=== PATIENT | male | born 1965 | race Caucasian/White ===

== ENCOUNTER 2017-01-19 20:47 | Emergency (ER) | payer OTHER ==
[~2017-01-19] VITALS: Ht 172.7 cm; Wt 75.0 kg
[2017-01-19 20:51] VITALS: Ht 172.7 cm; Wt 75.0 kg
[2017-01-19] MEDS ORDERED: MoRPHine SULFATE 4 MG/ML 1 ML CARP\\VIAL IV STA ×2 (21:02→23:04)
[2017-01-19 21:08] LABS: HEMATOCRIT 43.8 % (42-52); MEAN CELL VOLUME 94.2 fL (80-100); MEAN CORPUSCULAR HEMOGLOBIN 32.7 pg (25-34); MEAN CORPUSCULAR HGB CONC 34.7 g/dl (32-36); MEAN PLATELET VOLUME 8.6 fL (7.4-10.4); PLATELET COUNT 226 K/uL (130-400); RED BLOOD COUNT 4.65 M/uL (4.7-6.1); WHITE BLOOD COUNT 16.92 K/uL (4.8-10.8)
[2017-01-19 21:15] VITALS: O2SAT 99
[2017-01-19 21:22] LABS: PARTIAL THROMBOPLASTIN RATIO 0.8; PROTHROMBIN TIME (PATIENT) 10.5 SECONDS (9.0-12.0)
[2017-01-19 21:24] LABS: ALT/SGPT 22 U/L (12-78); BLOOD UREA NITROGEN 15 mg/dl (7-18); BUN/CREATININE RATIO 9.5 (10-20); CALCIUM 8.7 mg/dl (8.5-10.1); CARBON DIOXIDE 27 mmol/L (21-32); CHLORIDE 101 mmol/L (98-107); GLUCOSE 144 mg/dl (70-99); POTASSIUM 4.2 mmol/L (3.5-5.1); SODIUM 139 mmol/L (136-145)
--- NOTE | 2017-01-19 21:27 | DIAGNOSTIC IMAGING REPORT ---
CHEST ONE VIEW PORTABLE CLINICAL HISTORY: Fever and sepsis COMPARISON STUDY: No previous studies for comparison. FINDINGS: The heart is normal in size. There is no overt failure. There is mild basilar interstitial thickening. There are no pleural effusions. There is no lobar consolidation.[ IMPRESSION: Mild basilar interstitial thickening. No evidence of lobar consolidation Electronically signed by: Kenyon Melgoza M.D. 01/19/2017 9:26 PM Dictated Date/Time: 01/19/2017 9:25 PM
[2017-01-19 21:34] LABS: ALKALINE PHOSPHATASE 71 U/L (45-117); AST/SGOT 15 U/L (15-37); BASO % 0.1 %; BASO ABS # 0.02 K/uL (0-0.2); CKMB/CK RATIO 1.2 (0-3.0); COMPLETE YES; EOS % 0.1 %; IG% 0.4 %; LYMPH % 30.7 %; MONO % 7.9 %; NEUT % 60.8 %
[2017-01-19] MEDS ORDERED: SODIUM CHLORIDE 0.9% 1000ML 1,000 ML IV STA (21:35)
[2017-01-19] MEDS ORDERED: OPTIRAY 320 IV PRN (21:45)
[2017-01-19] MEDS ORDERED: DICL-201 PO (21:49)
[2017-01-19] MEDS ORDERED: PRED10TA PO (21:49)
--- NOTE | 2017-01-19 22:53 | DIAGNOSTIC IMAGING REPORT ---
CT ANGIOGRAM OF THE CHEST CLINICAL HISTORY: Chest pain and shortness of breath COMPARISON STUDY: Chest x-ray dated 01/19/2017 TECHNIQUE: Following the IV administration of 92 mL of Optiray-320, CT angiogram of the thorax was performed from the thoracic inlet to the lung bases utilizing the pulmonary embolus protocol. Images are reviewed in the axial, sagittal, and coronal planes. IV contrast was administered without complication. MIP imaging was performed. CT DOSE: 298.16 mGy.cm FINDINGS: No pathologically enlarged axillary mediastinal or hilar lymph nodes were visualized. There was no evidence of thoracic aortic dilatation. An intraluminal hypodensity within the ascending thoracic aorta is likely artifactual. There were no pulmonary artery filling defects to indicate acute pulmonary embolism. No pleural effusions are visualized. There are by basilar atelectatic changes. There is no focal pulmonary consolidation. IMPRESSION: 1. No evidence of acute pulmonary embolism 2. No evidence of focal pulmonary consolidation 3. Unusual appearing hypodensity within the ascending thoracic aorta. This is of uncertain etiology and possibly artifactual. This does not have the typical appearance of a dissection. If there is clinical concern over the presence of ascending thoracic aortic pathology, a cardiac echo study could be obtained in follow-up for correlation. Electronically signed by: Kenyon Melgoza M.D. 01/19/2017 10:52 PM Dictated Date/Time: 01/19/2017 10:42 PM
[2017-01-19] MEDS ORDERED: ONDANSETRON INJ 2 MG/ML 2 ML VIAL IV STA (23:14)
[2017-01-19] MEDS ORDERED: METOPROLOL TARTRATE 1 MG/ML VIAL IV STA (23:27)
--- NOTE | 2017-01-20 00:09 | EMERGENCY ROOM VISIT NOTE ---
History Report prepared by Salomón: Kapil Hodgson Under the Supervision of: Dr. Tyler Moore D.O. First contact with patient: 20:54 Chief Complaint: CHEST PAIN Stated Complaint: CHEST PAIN History of Present Illness The patient is a 51 year old male who presents to the Emergency Room via ambulance with complaints of worsening upper chest pain starting prior to arrival. The patient currently rates his discomfort as an 8/10 in severity. The patient states that the pain is radiating into his back, and it feels like pressure. The patient additionally states that he was vomiting, sweaty, he was burping, and his left fingers are numb. He states that breathing exacerbates the pain. The patient states that he has a history of intermittent heart murmurs. He states that he smokes marijuana. Source of History: patient Onset: prior to arrival Position: chest Symptom Intensity: 8/10 Quality: pressure Timing: worsening Modifying Factors (Worsening): breathing Associated Symptoms: + vomiting Note: Associated symptoms: sweating and burping Review of Systems See HPI for pertinent positives & negatives. A total of 10 systems reviewed and were otherwise negative. Past Medical & Surgical Medical Problems: (1) No Known Active Medical Problems Family History Cancer Diabetes mellitus Hypertension Social History Smoking Status: Former Smoker Alcohol Use: none Drug Use: none Marital Status: single Housing Status: lives with family Occupation Status: employed Current/Historical Medications Scheduled Diclofenac (Voltaren), 75 MG PO BID Prednisone (Prednisone), 10 MG PO TAPER UD Allergies Coded Allergies: No Known Allergies (Unverified , 06/23/12) Physical Exam Vital Signs Date Time Temp Pulse Resp B/P Pulse Ox O2 Delivery O2 Flow Rate FiO2 01/20/17 00:12 59 15 01/20/17 00:07 44 20 01/20/17 00:02 46 01/20/17 00:02 46 15 01/20/17 00:00 151/101 01/19/17 23:57 44 18 01/19/17 23:53 153/108 01/19/17 23:52 56 20 01/19/17 23:47 50 23 01/19/17 23:42 48 17 01/19/17 23:37 60 14 01/19/17 23:32 53 20 01/19/17 23:30 151/96 01/19/17 23:30 52 159/101 01/19/17 23:27 51 20 01/19/17 23:22 52 18 01/19/17 23:17 58 19 01/19/17 23:12 92 27 01/19/17 23:11 149/105 01/19/17 23:07 63 29 01/19/17 23:02 66 25 01/19/17 22:57 71 25 01/19/17 22:52 70 26 01/19/17 22:47 71 28 98 01/19/17 22:45 62 21 159/101 97 Room Air 01/19/17 22:44 159/101 01/19/17 22:12 46 21 95 01/19/17 22:07 45 21 95 01/19/17 22:02 46 17 96 01/19/17 22:00 153/92 01/19/17 21:57 44 20 95 01/19/17 21:52 43 15 95 01/19/17 21:47 50 20 98 01/19/17 21:42 45 19 94 01/19/17 21:37 44 13 95 01/19/17 21:32 52 19 98 01/19/17 21:30 138/87 01/19/17 21:27 47 25 96 01/19/17 21:22 51 20 95 01/19/17 21:17 50 21 93 01/19/17 21:15 99 Room Air 01/19/17 21:14 73 01/19/17 21:12 64 30 149/89 99 Room Air 01/19/17 21:07 53 33 100 01/19/17 21:02 54 25 99 01/19/17 21:00 134/90 01/19/17 20:57 136/85 01/19/17 20:54 99 Room Air 01/19/17 20:53 98 Room Air 01/19/17 20:51 36.5 50 20 135/85 98 Room Air Physical Exam CONSTITUTIONAL/VITAL SIGNS: Reviewed / noted above. GENERAL: Non-toxic in appearance. INTEGUMENTARY: Warm, dry, and Schlusser. HEAD: Normocephalic. EYES: without scleral icterus or trauma. ENT/OROPHARYNX: clear and moist. LYMPHADENOPATHY/NECK: Is supple without lymphadenopathy or meningismus. RESPIRATORY: Lungs clear and equal. CARDIOVASCULAR: Regular rate and rhythm. GI/ABDOMEN: Soft and nontender. No organomegaly or pulsatile mass. No rebound or guarding. Normal bowel sounds. EXTREMITIES: Warm and well perfused. BACK: No CVA tenderness. NEUROLOGICAL: Intact without focal deficits. PSYCHIATRIC: normal affect. MUSCULOSKELETAL: Normally developed with good muscle tone. Medical Decision & Procedures ER Provider Diagnostic Interpretation: Radiology results as stated below per my review and radiologist interpretation: CHEST ONE VIEW PORTABLE CLINICAL HISTORY: Fever and sepsis COMPARISON STUDY: No previous studies for comparison. FINDINGS: The heart is normal in size. There is no overt failure. There is mild basilar interstitial thickening. There are no pleural effusions. There is no lobar consolidation.[ IMPRESSION: Mild basilar interstitial thickening. No evidence of lobar consolidation Electronically signed by: Kenyon Melgoza M.D. 01/19/2017 9:26 PM Dictated Date/Time: 01/19/2017 9:[address] ANGIOGRAM OF THE CHEST CLINICAL HISTORY: Chest pain and shortness of breath COMPARISON STUDY: Chest x-ray dated 01/19/2017 TECHNIQUE: Following the IV administration of 92 mL of Optiray-320, CT angiogram of the thorax was performed from the thoracic inlet to the lung bases utilizing the pulmonary embolus protocol. Images are reviewed in the axial, sagittal, and coronal planes. IV contrast was administered without complication. MIP imaging was performed. CT DOSE: 298.16 mGy.cm FINDINGS: No pathologically enlarged axillary mediastinal or hilar lymph nodes were visualized. There was no evidence of thoracic aortic dilatation. An intraluminal hypodensity within the ascending thoracic aorta is likely artifactual. There were no pulmonary artery filling defects to indicate acute pulmonary embolism. No pleural effusions are visualized. There are by basilar atelectatic changes. There is no focal pulmonary consolidation. IMPRESSION: 1. No evidence of acute pulmonary embolism 2. No evidence of focal pulmonary consolidation 3. Unusual appearing hypodensity within the ascending thoracic aorta. This is of uncertain etiology and possibly artifactual. This does not have the typical appearance of a dissection. If there is clinical concern over the presence of ascending thoracic aortic pathology, a cardiac echo study could be obtained in follow-up for correlation. Electronically signed by: Kenoyn Melgoza M.D. 01/19/2017 10:52 PM Dictated Date/Time: 01/19/2017 10:42 PM Laboratory Results 01/19/17 20:55 Red Blood Count 4.65, Mean Corpuscular Volume 94.2, Mean Corpuscular Hemoglobin 32.7, Mean Corpuscular Hemoglobin Concent 34.7, Mean Platelet Volume 8.6, Neutrophils (%) (Auto) 60.8, Lymphocytes (%) (Auto) 30.7, Monocytes (%) (Auto) 7.9, Eosinophils (%) (Auto) 0.1, Basophils (%) (Auto) 0.1, Neutrophils # (Auto) 10.28, Lymphocytes # (Auto) 5.20, Monocytes # (Auto) 1.34, Eosinophils # (Auto) 0.01, Basophils # (Auto) 0.02 01/19/17 20:55 Test 01/19/17 20:55 01/19/17 21:00 01/19/17 23:56 White Blood Count 16.92 K/uL (4.8-10.8) Red Blood Count 4.65 M/uL (4.7-6.1) Hemoglobin 15.2 g/dL (14.0-18.0) Hematocrit 43.8 % (42-52) Mean Corpuscular Volume 94.2 fL (80-100) Mean Corpuscular Hemoglobin 32.7 pg (25-34) Mean Corpuscular Hemoglobin Concent 34.7 g/dl (32-36) Platelet Count 226 K/uL (130-400) Mean Platelet Volume 8.6 fL (7.4-10.4) Neutrophils (%) (Auto) 60.8 % Lymphocytes (%) (Auto) 30.7 % Monocytes (%) (Auto) 7.9 % Eosinophils (%) (Auto) 0.1 % Basophils (%) (Auto) 0.1 % Neutrophils # (Auto) 10.28 K/uL (1.4-6.5) Lymphocytes # (Auto) 5.20 K/uL (1.2-3.4) Monocytes # (Auto) 1.34 K/uL (0.11-0.59) Eosinophils # (Auto) 0.01 K/uL (0-0.5) Basophils # (Auto) 0.02 K/uL (0-0.2) RDW Standard Deviation 45.7 fL (36.4-46.3) RDW Coefficient of Variation 13.2 % (11.5-14.5) Immature Granulocyte % (Auto) 0.4 % Immature Granulocyte # (Auto) 0.07 K/uL (0.00-0.02) Prothrombin Time 10.5 SECONDS (9.0-12.0) Prothromb Time International Ratio 1.0 (0.9-1.1) Activated Partial Thromboplast Time 20.0 SECONDS (21.0-31.0) Partial Thromboplastin Ratio 0.8 Anion Gap 11.0 mmol/L (3-11) Est Creatinine Clear Calc Drug Dose 51.6 ml/min Estimated GFR () 56.2 Estimated GFR (Non- 48.5 BUN/Creatinine Ratio 9.5 (10-20) Calcium Level 8.7 mg/dl (8.5-10.1) Total Bilirubin 0.4 mg/dl (0.2-1) Direct Bilirubin 0.1 mg/dl (0-0.2) Aspartate Amino Transf (AST/SGOT) 15 U/L (15-37) Alanine Aminotransferase (ALT/SGPT) 22 U/L (12-78) Alkaline Phosphatase 71 U/L (45-117) Total Creatine Kinase 82 U/L (39-308) Creatine Kinase MB 1.0 ng/ml (0.5-3.6) Creatine Kinase MB Ratio 1.2 (0-3.0) Troponin I < 0.015 ng/ml (0-0.045) Total Protein 6.9 gm/dl (6.4-8.2) Albumin 3.9 gm/dl (3.4-5.0) Lipase 127 U/L (73-393) Thyroid Stimulating Hormone (TSH) 1.830 uIu/ml (0.300-4.500) Bedside D-Dimer > 450 ng/mlFEU (0-450) Bedside Troponin I 1.000 ng/ml (0-0.045) Laboratory results as stated above per my review. Medications Administered Medications (Trade) Dose Ordered Sig/Noe Route Start Time Stop Time Status Last Admin Dose Admin Morphine Sulfate 4 mg 4 mg NOW STAT IV 01/19/17 21:02 01/19/17 21:04 DC 01/19/17 21:14 4 MG Sodium Chloride (Nss 1000ml) 1,000 ml @ 999 mls/hr Q1H1M STAT IV 01/19/17 21:35 01/19/17 22:35 DC 01/19/17 22:02 999 MLS/HR Morphine Sulfate (MoRPHine SULFATE INJ) 4 mg NOW STAT IV 01/19/17 23:04 01/19/17 23:05 DC 01/19/17 23:05 4 MG Ondansetron HCl (Zofran Inj) 4 mg NOW STAT IV 01/19/17 23:14 01/19/17 23:15 DC 01/19/17 23:15 4 MG Metoprolol Tartrate (Lopressor Iv) 5 mg NOW STAT IV 01/19/17 23:27 01/19/17 23:28 DC 01/19/17 23:30 5 MG ECG Indication: chest pain Rate (beats per minute): 46 Rhythm: sinus bradycardia Findings: no ectopy, other (No acute injury) Change: REPEAT EKG: Normal sinus rhythm, 80 bpm, no acute injury, no ectopy ED Course 2053: Previous medical records were reviewed. The patient was evaluated in room C4. A complete history and physical examination was performed. 2101: Morphine Sulfate Inj 4mg IV 2134: Sodium Chloride 1000 ml @ 999 mls/hr IV 2303: Morphine Sulfate Inj 4mg IV 2304: I reevaluated the patient, and he was still in severe pain and vomiting. 230: I discussed the patient's case with Dr. Waller, Cardiology, and he states that the patient should be evaluated further due to the possibility of a dissection. 2314: Zofran Inj 4mg IV 2327: Lopressor IV 5mg IV 2342: I discussed the patient's case with Dr. Lainez, Thoracic Surgery, [facility]. She is going to evaluate the patient for further treatment. Medical Decision the differential was considered includes acute myocardial infarction, acute coronary syndrome, myocarditis, pericarditis, pericardial effusions /tamponad, esophageal perforation, thoracic aortic dissection, pulmonary embolism, pneumonia, pneumothorax, pancreatitis, shingles, acute cholecystitis, perforated abdominal viscus. This is a 51-year-old male who presents to the ED with a chief complaint of upper chest pain that radiates into his back. The patient states that the symptoms started about 3045 minutes prior to his arrival. He describes it as pressure. He has some associated nausea and vomiting. He also reported some sweating and burping. His symptoms continue on his evaluation. His vital signs are normal. His physical exam was relatively unremarkable with exception of the patient appeared to have some pain. Twelve-lead EKG reveals normal sinus rhythm without ectopy or acute injury. His white blood cell count was 16.9. His d-dimer was elevated. Creatinine was 1.6. Troponin was negative. Troponin #2 was elevated and increased by [address] scan of the chest did not show PE. There was a concerning abnormality in the ascending thoracic aorta. Radiologist recommended follow-up ultrasound for further evaluation if aortic dissection was of concern. I spoke with our friend of the court and he recommends a YAN. This cannot be performed at this time here. He recommends transfer to a hospital that has capabilities of performing thoracic surgery. I talked to the patient about this. He agrees to transfer to [facility]. The patient is treated with morphine IV for his pain. His blood pressure remains stable. The patient was given IV Morphine for pain which helps some. He was ordered Lopressor 5 mg IV. He did have an episode of vomiting here and was given Zofran 4 mg IV. He was also given normal saline 1 L IV as his creatinine was 1.6 and he received IV contrast. The patient continues having fairly persistent pain that worsens at times but improved somewhat with morphine. A total of 3 EKGs formed and none showed ischemic changes. The patient remained stable during his ED stay. He is transferred by helicopter for emergent cardiology/cardiothoracic evaluation. Consults Time Called: 230 Consulting Physician: Dr. Waller, Cardiology Returned Call: [phone] I discussed the patient's case with Dr. Waller, Cardiology, and he states that the patient should be evaluated further due to the possibility of a dissection. Additional Consults: Time Called: [phone] Consulted Physician: Dr. Lainez, Thoracic Surgery, [facility] Returned Call: [phone] Additional Comments: I discussed the patient's case with Dr. Lainez, Thoracic Surgery, [facility]. She is going to evaluate the patient for further treatment. Impression Primary Impression: Aortic dissection Additional Impression: Elevated troponin Critical Care I have personally spent greater than 35 minutes of critical care time in the direct management of this patient. This includes bedside care, interpretation of diagnostic studies, and testing, discussion with consultants, patient, and family members, and other required patient management activities. This 35 minutes is in excess of all separately billable procedures. Scribe Attestation The scribe's documentation has been prepared under my direction and personally reviewed by me in its entirety. I confirm that the note above accurately reflects all work, treatment, procedures, and medical decision making performed by me. Departure Information Dispostion Transfer Acute Care Facility Referrals No Doctor, Assigned (PCP) Patient Instructions My [facility] Problem Qualifiers
[2017-01-20 01:01] VITALS: BP 148/95; PULSE 59; TEMP 36.5; O2SAT 98
== END 2017-01-20 01:03 | disposition short-term general hospital (02) ==
LOC: EDBD 20:47 → C.EDC 20:48
DX: I71.00 Dissection of unspecified site of aorta (principal); R79.89 Other specified abnormal findings of blood chemistry; Z87.891 Personal history of nicotine dependence; Z83.3 Family history of diabetes mellitus; Z82.49 Family history of ischemic heart disease and other diseases of the circulatory system; Z79.52 Long term (current) use of systemic steroids

== ENCOUNTER 2025-01-04 10:42 | Inpatient (IN) ==
[2025-01-04 11:45] LABS: Basophils # (auto) 0.06 K/uL (0.00-0.20); Basophils % (auto) 0.7 %; Eosinophils # (auto) 0.08 K/uL (0.00-0.50); Eosinophils % (auto) 0.9 %; Hematocrit (blood only) 46.1 % (42.0-52.0); Hemoglobin 15.6 g/dl (14.0-18.0); Immature Granulocytes # (auto) 0.04 K/uL (0.01-0.20); Immature Granulocytes % (auto) 0.5 %; Lymphocytes # (auto) 1.62 K/uL (1.20-3.40); Mean Corpuscular Hemoglobin 32.2 pg (25.0-34.0); Mean Corpuscular Hgb Conc 33.8 g/dL (32.0-36.0); Mean Corpuscular Volume 95.1 fL (80.0-100.0); Mean Platelet Volume 8.4 fL (9.4-12.4); Monocytes # (auto) 0.56 K/uL (0.11-0.59); Monocytes % (auto) 6.6 %; Neutrophils # (auto) 6.17 K/uL (1.40-6.50); Neutrophils % (auto) 72.3 %; Platelet Count 203 K/uL (130-400); RDW Coefficient of Variation 12.9 % (11.5-14.5); RDW Standard Deviation 45.5 fL (36.4-46.3); Red Blood Count 4.85 M/uL (4.70-6.10); White Blood Count 8.53 K/ul (4.8-10.8)
[2025-01-04 11:47] LABS: Albumin Globulin Ratio 1.8 (0.9-2); Albumin Level 4.4 gm/dl (3.4-5.0); BUN Creatinine Ratio 14.6 (10-20); Bilirubin,Total 0.5 mg/dl (0.2-1.0); Calcium 9.4 mg/dl (8.6-10.3); Creatinine Clr Calc Pharmacy 54.8 ml/min; Globulin 2.4 gm/dl (2.5-4.0); Potassium 4.6 mmol/L (3.5-5.1); Total Protein 6.8 gm/dl (6.0-8.3)
[2025-01-04 11:53] LABS: Troponin I High Sensitivity 14.9 pg/ml (0-20)
[2025-01-04 11:57] LABS: INR 0.9 (0.9-1.1); Partial Thromboplastin Ratio 0.9; Partial Thromboplastin Time 23 Seconds (21-31); Prothrombin Time 10.3 Seconds (9.0-12.0)
[2025-01-04] MEDS: fentaNYL citrate PF 100 MCG/2 ML VIAL IV STA (12:18)
--- NOTE | 2025-01-04 12:20 | Emergency Department Note ---
Impression & Plan Chest pain, Non-ST elevation (NSTEMI) myocardial infarction ED Provider Note HISTORY OF PRESENT ILLNESS: Patient is a 59-year-old male presenting with chest pain, back pain and neck pain. Patient reports that earlier this morning at 815 after getting off the phone with a medicare contact specialist, he developed substernal chest pain that radiated into his back and up his neck. He states that most of his pain seems to be located on the left side of his chest and into his left shoulder and left neck. He states that his bilateral upper arms hurt down to the elbows. He denies ever having pain like this before. Denies any DVT or PE history. He is not on any anticoagulation or antiplatelet therapy. He states the pain has been constant since onset. He denies any history of cardiac stents. He denies any headache or changes in vision. Denies any lightheadedness or dizziness. Denies any abdominal pain, nausea or vomiting. Patient reports that he [facility] and it was recommended that he get a stent in his heart, but he states that he did not want to have that procedure performed at that time. ROS: as above PHYSICAL EXAM: Constitutional: Patient appears in no acute distress. HENT: Head: Normocephalic and atraumatic. Eyes: EOMI, PERRL Mouth/Throat: Mucous membranes moist. Neck: Trachea midline. Neck supple. Cardiovascular: RRR, No murmurs, rubs or gallops. Intact distal pulses. Pulmonary/Chest: No respiratory distress. Breath sounds clear and equal bilaterally. No wheezes or rales. Abdominal: Abdomen soft, no tenderness, rebound or guarding. Musculoskeletal: No edema, tenderness or deformity noted. Skin: Warm and dry. No rash, erythema, pallor or cyanosis Psychiatric: Appropriate mood and affect for situation. Neurological: Alert and keenly responsive. CN II-XII grossly intact, moving all extremities equally and fully. MDM: - Vitals signs showed hypertension and bradycardia - History obtained via patient. History as above. - Chronic conditions affecting care: HTN; HLD; NSTEMI - Differential diagnoses include, but are not limited to: Acute coronary syndrome; pulmonary embolism; dissection; tension pneumothorax; esophageal rupture; pneumonia - Order placed for continuous cardiac monitoring. At this time, monitor showed rate of 54 bpm with normal sinus rhythm, per my interpretation. - External medical records reviewed. - EKG image interpreted by myself showed normal sinus rhythm. Rate bradycardic at 58 bpm. QT 402. No acute ischemic changes. - Laboratory workup interpreted by myself showed normal WBC; normal PT/INR; slight hyponatremia (Na 134); normal troponin - CXR image reviewed by myself is negative for pneumonia, per my interpretation. - Patient given 50 mcg IV fentanyl for pain control on arrival to ER. - CTA chest negative for acute abnormality. - Repeat troponin elevated at 248.3. Repeat EKG image obtained at 15:48 interpreted by myself showed normal sinus rhythm. Rate 62 bpm. QT 410. No acute ischemic changes. - Patient reports he is pain-free on reassessment in the emergency department. - HEART score 4 (History +1 moderately suspicious; EKG +0; Age +1; Risk factors +2; Initial troponin +0), amounting to a moderate score. - Patient given 324 mg PO aspirin - Discussion was had with pillowcase cutter about patient's case and need for admission - Hospitalist consulted for admission - [facility]. I have personally spent 61 minutes of critical care time in the direct management of this patient. This includes bedside care, interpretation of diagnostic studies, and testing, discussion with consultants, patient, and family members, and other required patient management activities. This 61 minutes is in excess of all separately billable procedures. 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 treated with warfarin-discontinued Hx of non-ST elevation myocardial infarction (NSTEMI) 01/2017, complicated by apical mural thrombus Dyslipidemia Social History Smoking Status: Former smoker Feels Safe at Home: Yes Allergies Allergies Allergy/AdvReac Type Severity Reaction Status Date / Time No Known Allergies Allergy Unverified 06/23/12 08:48 Home Meds Home Medications Medication Instructions Recorded Confirmed No Known Home Medications 01/04/25 01/04/25 Results & Data (ED) Vital Signs Vital Signs - 24 hr 01/04/25 10:58 01/04/25 11:47 01/04/25 11:47 Temperature 36.7 C Temperature Source Temporal Artery Scan Pulse Rate 56 L Pulse Rate [Apical] Pulse Rhythm Regular Pulse Strength Normal Respiratory Rate 18 Respiratory Effort / Characteristics Non-Labored Spontaneous Respiratory Depth Normal Respiratory Pattern Blood Pressure 143/90 H Blood Pressure [Right Arm] Blood Pressure Mean 107 Blood Pressure Mean [Right Arm] Blood Pressure Position Sitting Blood Pressure Position [Right Arm] Pulse Oximetry 99 100 Oxygen Delivery Method Room Air Room Air Oxygen Flow Rate 100 Sepsis Recent Fever Within 48 Hours No Sepsis New/Unexplained Change in Mental Status N/A Sepsis Action Taken by Nursing No Action Required 01/04/25 12:01 01/04/25 12:39 01/04/25 13:00 Temperature Temperature Source Pulse Rate 51 L 54 L Pulse Rate [Apical] 72 Pulse Rhythm Pulse Strength Respiratory Rate 16 15 Respiratory Effort / Characteristics Non-Labored Spontaneous Respiratory Depth Normal Respiratory Pattern Regular Blood Pressure 139/95 Blood Pressure [Right Arm] 145/95 H Blood Pressure Mean 115 Blood Pressure Mean [Right Arm] 111 Blood Pressure Position Blood Pressure Position [Right Arm] Pulse Oximetry 98 95 Oxygen Delivery Method Room Air Oxygen Flow Rate Sepsis Recent Fever Within 48 Hours Sepsis New/Unexplained Change in Mental Status Sepsis Action Taken by Nursing 01/04/25 15:25 Temperature Temperature Source Pulse Rate Pulse Rate [Apical] 60 Pulse Rhythm Pulse Strength Respiratory Rate 17 Respiratory Effort / Characteristics Non-Labored Spontaneous Respiratory Depth Normal Respiratory Pattern Regular Blood Pressure Blood Pressure [Right Arm] 152/92 H Blood Pressure Mean Blood Pressure Mean [Right Arm] 112 Blood Pressure Position Blood Pressure Position [Right Arm] Semi-fowlers Pulse Oximetry 96 Oxygen Delivery Method Room Air Oxygen Flow Rate Sepsis Recent Fever Within 48 Hours Sepsis New/Unexplained Change in Mental Status Sepsis Action Taken by Nursing Laboratory Data 01/04/25 11:12 01/04/25 11:12 Lab Results 01/04/25 01/04/25 Range/Units 11:12 14:53 WBC 8.53 (4.8-10.8) K/ul RBC 4.85 (4.70-6.10) M/uL Hgb 15.6 (14.0-18.0) g/dl Hct 46.1 (42.0-52.0) % MCV 95.1 (80.0-100.0) fL MCH 32.2 (25.0-34.0) pg MCHC 33.8 (32.0-36.0) g/dL RDW Std Deviation 45.5 (36.4-46.3) fL RDW Coeff of Radu 12.9 (11.5-14.5) % Plt Count 203 (130-400) K/uL MPV 8.4 L (9.4-12.4) fL Immature Gran % (Auto) 0.5 % Neut % (Auto) 72.3 % Lymph % (Auto) 19.0 % [place] % (Auto) 6.6 % Eos % (Auto) 0.9 % Baso % (Auto) 0.7 % Neut # (Auto) 6.17 (1.40-6.50) K/uL Lymph # (Auto) 1.62 (1.20-3.40) K/uL [place] # (Auto) 0.56 (0.11-0.59) K/uL Eos # (Auto) 0.08 (0.00-0.50) K/uL Baso # (Auto) 0.06 (0.00-0.20) K/uL Immature Gran # (Auto) 0.04 (0.01-0.20) K/uL PT 10.3 (9.0-12.0) Seconds INR 0.9 (0.9-1.1) APTT 23 (21-31) Seconds PTT Ratio 0.9 Sodium 134 L (136-145) mmol/L Potassium 4.6 (3.5-5.1) mmol/L Chloride 101 (98-107) mmol/L Carbon Dioxide 28 (21-32) mmol/L Anion Gap 5 (3-11) BUN 20 (6-23) mg/dl Creatinine 1.37 (0.6-1.4) mg/dl Est Cr Clr Drug Dosing 54.8 ml/min eGFR 58.69 BUN/Creatinine Ratio 14.6 (10-20) Glucose 142 H (70-99(Fasting)) mg/dl Calcium 9.4 (8.6-10.3) mg/dl Total Bilirubin 0.5 (0.2-1.0) mg/dl AST 16 (13-39) U/L ALT 14 (7-52) U/L Alkaline Phosphatase 70 (34-104) U/L Troponin I High Sens 14.9 248.3 H* D (0-20) pg/ml Total Protein 6.8 (6.0-8.3) gm/dl Albumin 4.4 (3.4-5.0) gm/dl Globulin 2.4 L (2.5-4.0) gm/dl Albumin/Globulin Ratio 1.8 (0.9-2) Administered Medications Discontinued Medications Aspirin (Aspirin Chew 324 Mg) 324 mg PO NOW STA Stop: 01/04/25 15:41 Last Admin: 01/04/25 15:48 Dose: 324 mg Documented By: SUSI Fentanyl Citrate (Fentanyl Citrate Pf 100 Mcg/2 Ml Vial) 50 mcg IV NOW STA Stop: 01/04/25 12:13 Last Admin: 01/04/25 12:18 Dose: 50 mcg Documented By: COLUMBA Ioversol (Optiray 320 125ml) 112 ml IV ONCE ONE Stop: 01/04/25 13:22 Last Admin: 01/04/25 13:22 Dose: 112 ml Documented By: NAN Imaging Data Radiologist's Impression: Chest X-Ray 01/04/25 11:01 XR chest 1V portable CLINICAL HISTORY: Chest pain, nonspecific COMPARISON STUDY: Chest radiograph and chest CT January 19, 2017. FINDINGS: Lung volumes are normal. Lungs are clear. There is no pneumothorax or pleural effusion. Cardiac size is normal. Mediastinal contours are normal. There is no evidence for pulmonary edema. Several old right-sided rib fractures are incidentally noted. IMPRESSION: No acute cardiopulmonary findings. ACT 112: Negative or not required by law. Electronically signed by: Tunde Nickerson M.D. 01/04/2025 12:45 PM Chest CTA 01/04/25 12:12 CT ANGIOGRAPHY OF THE CHEST DISSECTION PROTOCOL CLINICAL HISTORY: Chest pain radiating into back and neck. Evaluate for aortic dissection. COMPARISON STUDY: Chest radiograph performed earlier today. Chest CT January 19, 2017. TECHNIQUE: Before and following the IV administration of 112 mL of Optiray, helical axial images of the chest were obtained. Maximal intensity projections and sagittal and coronal reformats were viewed on an independent 3D workstation. IV contrast was administered without complication. Automated exposure control was utilized for the study. A dose lowering technique was utilized adhering to the principles of ALARA. CT DOSE: 981.09 mGy.cm FINDINGS: Caliber of the ascending aorta is normal, measuring 3.5 cm. There is no intramural hematoma or thoracic aortic dissection. There is mild coronary artery calcification. Size of the heart is normal. There is no pericardial effusion. No thoracic lymphadenopathy is present. No pulmonary emboli are identified. There is no pneumothorax or pleural effusion. There is no consolidation to suggest pneumonia. There is minimal upper lobe predominant paraseptal emphysema. There are no acute fractures within the bony thorax. Visualized portions of the upper abdomen are unremarkable. There is mild atherosclerotic plaque within the thoracic aorta and moderate atherosclerotic plaque within visualized portions of the abdominal aorta. IMPRESSION: 1. No thoracic aortic dissection. 2. No acute intrathoracic findings. ACT 112: Negative or not required by law. Electronically signed by: Tunde Nickerson M.D. 01/04/2025 1:35 PM Discharge Plan Visit Data Chief Complaint: Chest Pain Stated Complaint: PAINS IN CHEST,ARM, BACK ED Provider: Crystal Carey Discharge Problem: Chest pain, Non-ST elevation (NSTEMI) myocardial infarction Forms Stand Alone Forms: My [facility] nanoMR Prescriptions Prescriptions: No Action No Known Home Medications Referrals Referrals: [facility] [Primary Care Provider] -
--- NOTE | 2025-01-04 12:46 | XRay Report ---
XR chest 1V portable CLINICAL HISTORY: Chest pain, nonspecific COMPARISON STUDY: Chest radiograph and chest CT January 19, 2017. FINDINGS: Lung volumes are normal. Lungs are clear. There is no pneumothorax or pleural effusion. Car diac size is normal. Mediastinal contours are normal. There is no evidence for pulmonary edema. Sever al old right-sided rib fractures are incidentally noted. IMPRESSION: No acute cardiopulmonary findings. ACT 112: Negative or not required by law. Electronically signed by: Tunde Nickerson M.D. 01/04/2025 12:45 PM
[2025-01-04] MEDS: OPTIRAY 320 125ml IV ONE (13:22)
--- NOTE | 2025-01-04 13:37 | CT Scan Report ---
CT ANGIOGRAPHY OF THE CHEST DISSECTION PROTOCOL CLINICAL HISTORY: Chest pain radiating into back and neck. Evaluate for aortic dissection. COMPARISON STUDY: Chest radiograph performed earlier today. Chest CT January 19, 2017. TECHNIQUE: Before and following the IV administration of 112 mL of Optiray, helical axial images of t he chest were obtained. Maximal intensity projections and sagittal and coronal reformats were viewed on an independent 3D workstation. IV contrast was administered without complication. Automated exp osure control was utilized for the study. A dose lowering technique was utilized adhering to the [facility]. CT DOSE: 981.09 mGy.cm FINDINGS: Caliber of the ascending aorta is normal, measuring 3.5 cm. There is no intramural hematom a or thoracic aortic dissection. There is mild coronary artery calcification. Size of the heart is no rmal. There is no pericardial effusion. No thoracic lymphadenopathy is present. No pulmonary emboli a re identified. There is no pneumothorax or pleural effusion. There is no consolidation to suggest pne umonia. There is minimal upper lobe predominant paraseptal emphysema. There are no acute fractures wi thin the bony thorax. Visualized portions of the upper abdomen are unremarkable. There is mild athero sclerotic plaque within the thoracic aorta and moderate atherosclerotic plaque within visualized port ions of the abdominal aorta. IMPRESSION: 1. No thoracic aortic dissection. 2. No acute intrathoracic findings. ACT 112: Negative or not required by law. Electronically signed by: Tunde Nickerson M.D. 01/04/2025 1:35 PM
--- NOTE | 2025-01-04 14:57 | Electrocardiogram Report ---
Test Reason : Blood Pressure : */* mmHG Vent. Rate : 58 BPM Atrial Rate : 58 BPM P-R Int : 168 ms QRS Dur : 90 ms QT Int : 402 ms P-R-T Axes : 81 79 76 degrees QTcB Int : 394 ms Sinus bradycardia with sinus arrhythmia Otherwise normal ECG When compared with ECG of 19-Jan-2017 23:11, No significant change was found Confirmed by Benji Conner ([id number]) on 01/04/2025 2:56:34 PM Referred By: Confirmed By: Benji Conner
--- NOTE | 2025-01-04 15:47 | History & Physical Report ---
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 Pain radiated to the jaw, down both arms and to the chest, did have associated diaphoresis and lightheadedness. 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 Admitted for cardiology evaluation and further workup. #Chest Pain | Elevated troponin | CAD Chest pain in the setting of recently reported abnormal outpatient stress test, and rising troponin EKG without ST segment changes Has not been taking outpatient metoprolol or statin Cardiology consulted - start heparin drip, no intervention today, can eat ASA 81mg qAM Troponin elevated 248, trend every 6 hours to peak prn nitro for pain #Dyslipidemia Reports is supposed to be taking statin outpatient, but hasn't in the last month AM lipids #Prediabetes Reportedly. Glucose 142 on admission AM HgbA1c #Alcohol Abuse Reports 2-3 drinks beers daily with dinner AWSS protocol Check B12 level, empiric thiamine Dispo: admit to PCU Dvt Ppx: heparin drip History of Present Illness Chief Complaint: chest pain Primary Care Provider: [facility] Ho is a 59-year-old male with a past medical history of non-STEMI, splenic infarction, dyslipidemia, hypertension who presents with chest pain. This occured after having an argument at a car dealership. He had chest pain that radiated to the jaw, down both arms and to the chest. Denies shortness of breath, but did have associated diaphoresis and lightheadedness. He had a recent stress test in [place] that recommended he have a stent placed but he declined this as he has been feeling well. Does not take any medications at home, reports that he is post be taking metoprolol and a statin but has not taken them in at least a month because "life has gotten busy" patient states the fentanyl did help his chest pain, does have a heaviness sensation in his chest. He denies history of diabetes but reports he is prediabetic, not on any medication. He does not smoke cigarettes but smokes marijuana "as often as possible" and drinks 2-3 beers with dinner daily ER course: Aspirin 324 mg p.o. 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 in setting of NSTEMI treated with warfarin-discontinued Hx of non-ST elevation myocardial infarction (NSTEMI) 01/2017, complicated by apical mural thrombus Dyslipidemia Social History Smoking Status: Former smoker Feels Safe at Home: Yes Review of Systems Review of Systems: All systems reviewed & are unremarkable except as noted in Subjective Physical Exam Physical Exam: General: NAD, VS as above, sitting up in bed, appears comfortable Resp: normal respiratory effort, coarse in the bases CV: RRR, no murmur, Abd: normal bowel sounds, non tender, soft Extremities: Moves all extremities, no lower extremityedema Neuro: A&O x3, Skin: intact, not diaphoretic Results & Data Results & Data Vital Signs (Past 12 Hours) Vital Signs Temp Pulse Pulse Resp BP BP Pulse Ox 01/04/25 15:25 60 17 152/92 H 96 01/04/25 13:00 54 L 15 139/95 95 01/04/25 12:39 72 16 145/95 H 98 01/04/25 12:01 51 L 01/04/25 11:47 100 01/04/25 11:47 01/04/25 10:58 98.1 F 56 L 18 143/90 H 99 O2 Del Method O2 Flow Rate 01/04/25 15:25 Room Air 01/04/25 13:00 01/04/25 12:39 Room Air 01/04/25 12:01 01/04/25 11:47 Room Air 01/04/25 11:47 100 01/04/25 10:58 Room Air Laboratory Results CBC, chemistry, coagulation studies, LFTs, troponin reviewed Diagnostic Findings chest x-ray and chest CTA reviewed Supervising Physician Co-Signing Physician Notes Patient seen and examined, chart reviewed, case discussed with Claudia Kauffman PA-C and I agree with the assessment and plan as above except as otherwise noted Labs and images reviewed 59yo M who had an argument at a car dealership followed by development of 3 hours of chest pain. Did have diaphoresis and lightheadedness. Chest pain radiated to arms and back. No dissection on CT. Trop normal --> 200s on recheck. Hx of failed stress test in [place] and was recommended for PCI which patient reportedly declined at the time. HIgh risk ACS. Now agreeable to stending. High risk dz --> heparinize. Pt does not take statin/MTP although was prescribed this. Received full dose aspirin. Continue 81mg daily. Cardiology consutled, anticipate catheterization. No evidence of acute HF on admission. On AWSS for concerns of daily etoh use without hx of withdrawal. Agree w/ above PG Care Time/CCT Total # of Minutes Spent Total Time Spent with Patient: Total time spent is greater than 50% in coordination of care (as documented) at patient's floor/unit and/or counseling patient: Coding Level of Care Code 60885 INT INP/OBS CARE 3/75MIN Diagnoses Chest pain R07.9 Dyslipidemia E78.5 Prediabetes R73.03
[2025-01-04] MEDS: ASPIRIN CHEW 324 MG PO STA (15:48)
[2025-01-04] MEDS: HEPARIN SOD (PORCINE) 1000 UNIT/ML IV ONE (17:05)
[2025-01-04] MEDS: HEPARIN 25000 UNIT/500 ML D5W 25,000 UNITS/500 ML BAG IV SCH (17:05)
[2025-01-04] MEDS: Heparin IV Adult Wt-Based Low-Dose w/ INITIAL Bolus Protocol IV STA (17:06)
--- NOTE | 2025-01-04 17:48 | Cardiology Consultation ---
Date of Consultation January 04, 2025 Assessment & Plan (1) Chest pain: (2) Elevated troponin: Plan 1. Chest pain: Unclear etiology. He does have a history of stress-induced cardiomyopathy. Will obtain an echocardiogram and trend his biomarkers. Started on a heparin infusion due to the increasing nature of his biomarkers and reportedly abnormal stress test recently. No aortic dissection based on the CT scan. 2. Elevated troponin: Very mild elevation given the severity and duration of his symptoms. Less likely to be an acute coronary syndrome. Possibly a stress- induced cardiomyopathy. Will obtain an echocardiogram in the morning. Will continue the heparin infusion for the evening. Will consider reevaluation of the coronary arteries based on these findings and or his recent stress test report. 3. Abnormal stress test: By report. This appears to have been an exercise perfusion study. It seems it was done as a matter of routine and not related to any new symptoms. Patient was apparently told he "needed a stent". Will see if we can obtain the perfusion report. 4. 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 History of Present Illness Reason for Consultation: Chest pain History of Present Illness The patient is a 59-year-old gentleman with a history of a stress-induced cardiomyopathy diagnosed in 2017. He presented to the hospital this morning due to symptoms of neck, back and chest discomfort. 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 His symptoms do not appear to be positional or relieved with changes in position. There was no pleuritic component. He did not have limiting dyspnea or severe shortness of breath. No associated dizziness or lightheadedness. He believes the symptoms persisted for nearly 2 hours before presenting to the hospital for an evaluation. In the hospital he states the symptoms waxed and waned in severity but were very severe at the time of presentation. He was administered some analgesics in the form of opioids and this relieved his symptoms. He has some residual neck discomfort that he feels is positional but otherwise is currently feeling well. He believes the symptoms are different from those he experienced in 2017. He has not had symptoms of this nature before. He is a fairly sedentary individual but does not experiencing limiting symptoms associated with activity. He specifically denied any limiting dyspnea or exertional chest pain. Occasionally he will have a "flutter" which is transient and not associated with other symptoms. He believes this happens approximately once per month. No lower extremity edema recently. Otherwise he has been feeling well. 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 Mood and affect appeared normal. He answered all questions appropriately. HEENT: Pupils are equal and reactive to light and accommodation. Extraocular movements are intact. The sclerae are anicteric. Neuro: Cranial nerves intact Lungs: Clear to auscultation bilaterally. He has good air movement without use of accessory muscles. No rales wheezes or rhonchi. Cardiac: Heart demonstrates a regular rate and rhythm. Normal S1 and S2. No murmurs on examination. Pulses: The patient has palpable radial pulses bilaterally that are equal in intensity Extremities: There was no evidence of hypoperfusion. There is no cyanosis or clubbing. There is no edema. Skin: I did not appreciate any rashes on examination today. Results & Data Vital Signs (Past 12 Hours) Vital Signs Temp Pulse Pulse Resp BP BP Pulse Ox 01/04/25 16:59 144/99 H 01/04/25 16:51 55 L 14 01/04/25 16:12 58 L 15 01/04/25 16:00 84 15 01/04/25 15:51 66 17 01/04/25 15:25 60 17 152/92 H 96 01/04/25 13:00 54 L 15 139/95 95 01/04/25 12:39 72 16 145/95 H 98 01/04/25 12:01 51 L 01/04/25 11:47 100 01/04/25 11:47 01/04/25 10:58 36.7 C 56 L 18 143/90 H 99 O2 Del Method O2 Flow Rate 01/04/25 16:59 01/04/25 16:51 01/04/25 16:12 01/04/25 16:00 01/04/25 15:51 01/04/25 15:25 Room Air 01/04/25 13:00 01/04/25 12:39 Room Air 01/04/25 12:01 01/04/25 11:47 Room Air 01/04/25 11:47 100 01/04/25 10:58 Room Air Laboratory Results Abnormal Lab Results 01/04/25 01/04/25 11:12 14:53 WBC 8.53 RBC 4.85 Hgb 15.6 Hct 46.1 MCV 95.1 MCH 32.2 MCHC 33.8 RDW Std Deviation 45.5 RDW Coeff of Radu 12.9 Plt Count 203 MPV 8.4 L Immature Gran % (Auto) 0.5 Neut % (Auto) 72.3 Lymph % (Auto) 19.0 Sullivan % (Auto) 6.6 Eos % (Auto) 0.9 Baso % (Auto) 0.7 Neut # (Auto) 6.17 Lymph # (Auto) 1.62 Sullivan # (Auto) 0.56 Eos # (Auto) 0.08 Baso # (Auto) 0.06 Immature Gran # (Auto) 0.04 PT 10.3 INR 0.9 APTT 23 PTT Ratio 0.9 Sodium 134 L Potassium 4.6 Chloride 101 Carbon Dioxide 28 Anion Gap 5 BUN 20 Creatinine 1.37 Est Cr Clr Drug Dosing 54.8 eGFR 58.69 BUN/Creatinine Ratio 14.6 Glucose 142 H Calcium 9.4 Total Bilirubin 0.5 AST 16 ALT 14 Alkaline Phosphatase 70 Troponin I High Sens 14.9 248.3 H* D Total Protein 6.8 Albumin 4.4 Globulin 2.4 L Albumin/Globulin Ratio 1.8 Diagnostic Findings Chest CTA performed today did not reveal any aortic dissection no other acute findings. Chest x-ray obtained today did not reveal any acute cardiopulmonary findings. Cardiac catheterization [facility] 01/20/2017: 40% mid LAD lesion. Right dominant coronary system. Ejection fraction 55%. Apical regional wall motion abnormalities insistent with stress-induced cardiomyopathy. PG Care Time/CCT Total # of Minutes Spent Total Time Spent with Patient: Total time spent is greater than 50% in coordination of care (as documented) at patient's floor/unit and/or counseling patient: Coding Level of Care Code 85728 IN/OBS CONSULT LVL 4,60M Diagnoses Chest pain R07.9 Elevated troponin R79.89
[2025-01-04] MEDS ORDERED: LORazepam 2 MG/1 ML VIAL IV PRN ×3 (19:27)
[2025-01-04] MEDS ORDERED: MoRPHine SULFATE 2 MG/ML CARP IV PRN (19:27)
[2025-01-04] MEDS ORDERED: ACETAMINOPHEN 500 MG TAB PO PRN (19:27)
[2025-01-04] MEDS ORDERED: Ativan IV Alcohol Withdrawal--Active Protocol IV PRN (19:27)
[2025-01-04] MEDS ORDERED: NITROGLYCERIN SL 0.4 MG/TAB TAB SL PRN (19:27)
[2025-01-04 23:54] LABS: ANTI-Xa, UFH(UnfractionatedHep 0.32 IU/ml (0.3-0.7)
[2025-01-05 06:38] LABS: Hematocrit (blood only) 44.7 % (42.0-52.0); Hemoglobin 15.5 g/dl (14.0-18.0); Mean Corpuscular Hemoglobin 32.1 pg (25.0-34.0); Mean Corpuscular Hgb Conc 34.7 g/dL (32.0-36.0); Mean Corpuscular Volume 92.5 fL (80.0-100.0); Mean Platelet Volume 8.3 fL (9.4-12.4); Platelet Count 160 K/uL (130-400); RDW Coefficient of Variation 12.9 % (11.5-14.5); RDW Standard Deviation 43.9 fL (36.4-46.3); Red Blood Count 4.83 M/uL (4.70-6.10); White Blood Count 7.11 K/ul (4.8-10.8)
[2025-01-05 06:55] LABS: BUN Creatinine Ratio 11.6 (10-20); Calcium 8.7 mg/dl (8.6-10.3); Chol HDL Ratio 3.3 (0-5); Creatinine Clr Calc Pharmacy 61.7 ml/min; Potassium 4.5 mmol/L (3.5-5.1)
[2025-01-05 07:15] LABS: ANTI-Xa, UFH(UnfractionatedHep 0.24 IU/ml (0.3-0.7)
[2025-01-05] MEDS: ASPIRIN 81 MG ECTAB PO SCH (07:35)
[2025-01-05] MEDS: THIAMINE HCL 100 MG TAB PO SCH (07:35)
--- NOTE | 2025-01-05 08:23 | Hospitalist Progress Note ---
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 Pain radiated to the jaw, down both arms and to the chest, did have associated diaphoresis and lightheadedness. 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 #NSTEMI | CAD NSTEMI suspected based on continued elevated troponin to peak 6564 pg/mL overnight No ST elevations on EKG Discussed with cardiology and plan for cardiac catheterization this morning Continue ASA 81mg qAM and heparin drip prn nitro for pain, discontinued morphine Telemetry revealed heart rate last 59 bpm therefore will start metoprolol to tartrate at 12.5 mg p.o. BID #Dyslipidemia Reports is supposed to be taking statin outpatient, but hasn't in the last month, no external medication history as gets meds through [facility] LDL 137. Defer starting statin to cardiology pending cardiac catheterization results #Prediabetes Reportedly. Glucose 142 on admission, 113 this morning HbA1c pending. #GERD Gets this just at night, unsure what he takes for it Start pantoprazole 40mg PO daily #Alcohol Abuse Reports 2-3 drinks beers daily with dinner AWSS protocol - not required any lorazepam overnight and no alcohol withdrawal symptoms this morning therefore switched to at risk protocol lorazepam B12 level 885, empiric thiamine VTE prophylaxis: heparin drip Diet: NPO pending cardiac catheterization, heart healthy following this Dispo: Continued admission on PCU Admission and Anticipated Discharge Date Admission Date: January 04, 2025 Subjective Patient pain-free this morning. Troponin continues to rise overnight. Discussed with cardiology this morning and plan for cardiac catheterization. Reports previous being on simvastatin and metoprolol for his heart but stopped these about a month ago after multiple recent stressors in his life. Review of Systems Review of Systems: All systems reviewed & are unremarkable except as noted in HPI & below Physical Exam Constitutional: WD/WN, vitals as above Respiratory: normal respiratory effort, lungs clear to auscultation Cardiovascular: RRR, no murmur, no edema Gastrointestinal (Abdomen): normal bowel sounds, soft, nontender, no hepatosplenomegaly Skin: no rashes, warm and dry Results & Data Results & Data Vital Signs (Past 12 Hours) Vital Signs Temp Pulse Resp BP Pulse Ox O2 Del Method O2 Del Method 01/05/25 07:39 36.8 C 61 19 136/84 96 Room Air 01/05/25 03:18 36.8 C 68 18 128/79 95 Room Air 01/04/25 22:21 36.8 C 53 L 18 97 Nasal Cannula 01/04/25 22:00 Nasal Cannula 01/04/25 21:24 63 16 148/93 H 97 Room Air O2 Flow Rate O2 Flow Rate 01/05/25 07:39 01/05/25 03:18 01/04/25 22:21 2 01/04/25 22:00 2 01/04/25 21:24 Laboratory Results Abnormal lab results 01/04/25 01/04/25 01/04/25 Range/Units 11:12 14:53 19:42 MPV 8.4 L (9.4-12.4) fL Heparin Anti-Xa, Unfract (0.3-0.7) IU/ml Sodium 134 L (136-145) mmol/L Glucose 142 H (70-99(Fasting)) mg/dl Troponin I High Sens 248.3 H* D 2230.2 H* D (0-20) pg/ml Globulin 2.4 L (2.5-4.0) gm/dl Cholesterol (0-200) mg/dl 01/05/25 01/05/25 Range/Units 01:57 06:17 MPV 8.3 L (9.4-12.4) fL Heparin Anti-Xa, Unfract 0.24 L (0.3-0.7) IU/ml Sodium (136-145) mmol/L Glucose 113 H (70-99(Fasting)) mg/dl Troponin I High Sens 6564.0 H* D (0-20) pg/ml Globulin (2.5-4.0) gm/dl Cholesterol 212 H (0-200) mg/dl PG Care Time/CCT Total # of Minutes Spent Total Time Spent with Patient: Total time spent is greater than 50% in coordination of care (as documented) at patient's floor/unit and/or counseling patient: Coding Level of Care Code 21010 SUB INP/OBS CARE 50MIN Diagnoses Non-ST elevation (NSTEMI) myocardial infarction I21.4 Hx of non-ST elevation myocardial infarction (NSTEMI) I25.2 Dyslipidemia E78.5 Prediabetes R73.03"
[2025-01-05] MEDS ORDERED: LORazepam 2 MG/1 ML VIAL IV PRN (08:30)
[2025-01-05] MEDS: METOPROLOL TARTRATE 25 MG TAB PO SCH (08:50)
[2025-01-05] MEDS: PANTOprazole 40 MG TAB PO SCH (08:50)
--- NOTE | 2025-01-05 09:33 | Pre Anesthesia Assessment ---
Date of Service January 05, 2025 Pre Sedation Assessment Vital Signs Temp Pulse Pulse Resp BP BP Pulse Ox 01/05/25 09:19 36.4 C 70 17 138/92 96 01/05/25 09:00 59 L 01/05/25 07:39 36.8 C 61 19 136/84 96 01/05/25 03:18 36.8 C 68 18 128/79 95 01/04/25 22:21 36.8 C 53 L 18 97 01/04/25 22:00 01/04/25 21:24 63 16 148/93 H 97 01/04/25 19:49 64 16 145/93 H 97 01/04/25 19:02 55 L 01/04/25 18:42 58 L 13 01/04/25 18:12 52 L 14 01/04/25 17:53 64 16 161/97 H 97 01/04/25 16:59 144/99 H 01/04/25 16:51 55 L 14 01/04/25 16:12 58 L 15 01/04/25 16:00 84 15 01/04/25 15:51 66 17 01/04/25 15:25 60 17 152/92 H 96 01/04/25 13:00 54 L 15 139/95 95 01/04/25 12:39 72 16 145/95 H 98 01/04/25 12:01 51 L 01/04/25 11:47 100 01/04/25 11:47 01/04/25 10:58 36.7 C 56 L 18 143/90 H 99 O2 Del Method O2 Del Method O2 Flow Rate O2 Flow Rate 01/05/25 09:19 Room Air 01/05/25 09:00 01/05/25 07:39 Room Air 01/05/25 03:18 Room Air 01/04/25 22:21 Nasal Cannula 2 01/04/25 22:00 Nasal Cannula 2 01/04/25 21:24 Room Air 01/04/25 19:49 Room Air 01/04/25 19:02 01/04/25 18:42 01/04/25 18:12 01/04/25 17:53 Room Air 01/04/25 16:59 01/04/25 16:51 01/04/25 16:12 01/04/25 16:00 01/04/25 15:51 01/04/25 15:25 Room Air 01/04/25 13:00 01/04/25 12:39 Room Air 01/04/25 12:01 01/04/25 11:47 Room Air 01/04/25 11:47 100 01/04/25 10:58 Room Air Cardiovascular + regular rate and + regular rhythm Respiratory + respiratory effort normal Pre-Sedation Airway Assessment Smoking Status: Unknown if ever smoked Hx Sleep Apnea: No Hx Difficult Intubation: No Short, Thick Neck: No Thyromental Distance: > or= 3.5 Finger Breadths Oral Cavity: + WNL Mallampati Class: III ASA: ASA3 NPO Status Date of Last Intake of Fluids: 01/04/25 Time of Last Intake of Fluids: 14:00 Date of Last Intake of Solid Food: 01/04/25 Time of Last Intake of Solid Foods: 14:00 Procedure Planning Contraindications for Sedation: none Current Medications Reviewed: Yes Notes The planned sedation has been discussed with the patient. Informed Consent was obtained. I have identified the patient, determined the appropriateness of sedation and have assessed the patient immediately prior to the procedure. All medicine(s) and interventions are by my order.
[2025-01-05] MEDS: niCARdipine 2,000 MCG/20 ML SYR ONE ×2 (09:41→13:54)
[2025-01-05] MEDS: NITROGLYCERIN/D5W 100MCG/ML 20ML SYR ONE ×2 (09:42→13:54)
--- NOTE | 2025-01-05 10:48 | Post Anesthesia Assessment ---
Date of Service January 05, 2025 Post Sedation Assessment Vital Signs Temp Pulse Pulse Resp BP BP Pulse Ox 01/05/25 09:19 36.4 C 70 17 138/92 96 01/05/25 09:00 59 L 01/05/25 07:39 36.8 C 61 19 136/84 96 01/05/25 03:18 36.8 C 68 18 128/79 95 01/04/25 22:21 36.8 C 53 L 18 97 01/04/25 22:00 01/04/25 21:24 63 16 148/93 H 97 01/04/25 19:49 64 16 145/93 H 97 01/04/25 19:02 55 L 01/04/25 18:42 58 L 13 01/04/25 18:12 52 L 14 01/04/25 17:53 64 16 161/97 H 97 01/04/25 16:59 144/99 H 01/04/25 16:51 55 L 14 01/04/25 16:12 58 L 15 01/04/25 16:00 84 15 01/04/25 15:51 66 17 01/04/25 15:25 60 17 152/92 H 96 01/04/25 13:00 54 L 15 139/95 95 01/04/25 12:39 72 16 145/95 H 98 01/04/25 12:01 51 L 01/04/25 11:47 100 01/04/25 11:47 01/04/25 10:58 36.7 C 56 L 18 143/90 H 99 O2 Del Method O2 Del Method O2 Flow Rate O2 Flow Rate 01/05/25 09:19 Room Air 01/05/25 09:00 01/05/25 07:39 Room Air 01/05/25 03:18 Room Air 01/04/25 22:21 Nasal Cannula 2 01/04/25 22:00 Nasal Cannula 2 01/04/25 21:24 Room Air 01/04/25 19:49 Room Air 01/04/25 19:02 01/04/25 18:42 01/04/25 18:12 01/04/25 17:53 Room Air 01/04/25 16:59 01/04/25 16:51 01/04/25 16:12 01/04/25 16:00 01/04/25 15:51 01/04/25 15:25 Room Air 01/04/25 13:00 01/04/25 12:39 Room Air 01/04/25 12:01 01/04/25 11:47 Room Air 01/04/25 11:47 100 01/04/25 10:58 Room Air Recovery Score Activity: Moves 4 extremities Respiration: Deep Breath/Cough Circulation: +/-20% PreAnes Value Consciousness: Fully Awake Oxygen Saturation: > 92% On Room Air Discharge Sedation Level of Care: Fast Track Phase II Post Sedation Plan On clinical assessment, the patient appears to have tolerated the sedation without complications. Patient is recovering as anticipated. Patient will continue to be monitored by nursing and may be discharged when sedation discharge criteria are met per below protocol. Upon Completions of procedure up to 15 minutes continue every 5 minute vital signs and the P.A.R. score; then discharge to a Phase I or Fast Track to Phase II per the following guidelines: * Discharge Patient to appropriate Phase II area if PAR is 8 or greater or return to pre- procedure baseline. The post - procedure orders will be as directed. * If PAR score is less than 8 or not return to pre-procedure baseline then patient will follow Phase I monitoring till PAR is reached for Phase II. The Phase I may be done in procedure room or may call to secure a Phase I area. * If naloxone or flumazenil are used for reversal, hold in Phase I for continued monitoring from when last reversal dose was given for a minimum of 60 minutes or longer pending the nurse and/or physician discretion of patient condition before discharge to Phase II. Please call the Sedation Physician to re-evaluate and complete post-note for discharge to Phase II area. Do NOT discharge from procedure sedation or Phase 1 until post- sedation evaluation note is complete by procedure /sedation MD Sedation Discharge Instructions to be given to the patient at discharge to home.
[2025-01-05] MEDS: fentaNYL citrate PF 100 MCG/2 ML VIAL ONE ×2 (10:50→14:03)
[2025-01-05] MEDS: HEPARIN (PORCINE) 1000 UNIT/ML 10 ML (CATH LAB USE ONLY) ONE ×2 (10:50→14:03)
[2025-01-05] MEDS: MIDAZOLAM HCL 1 MG/ML 2ML VIAL ONE ×3 (10:50→14:03)
[2025-01-05] MEDS: OPTIRAY 350 ONE ×2 (10:51→14:03)
--- NOTE | 2025-01-05 11:12 | Cardiology Progress Note ---
Date of Service January 05, 2025 Assessment & Plan (1) Chest pain: (2) Elevated troponin: Plan 1. Chest pain: Unclear etiology although given the elevated biomarkers certainly consistent with a coronary event. Unclear if this represents an acute coronary syndrome or simply ischemia in the setting of fixed disease. This point we will plan on proceeding with coronary angiography. I appraised the patient of the risks, benefits and alternatives. 2. Elevated troponin: Marked elevation over the past several hours. This was suggests that ischemia was related to the symptoms he experienced yesterday morning. Continue heparin and plan catheterization as noted above. 3. Abnormal stress test: By report. This appears to have been an exercise perfusion study. It seems it was done as a matter of routine and not related to any new symptoms. Patient was apparently told he "needed a stent". Will see if we can obtain the perfusion report. 4. 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 No wall motion abnormalities or thrombus on his current echocardiogram. Admission and Anticipated Discharge Date Admission Date: January 04, 2025 Subjective This morning patient clinically feeling well. No recurrent symptoms of chest, neck or back pain. No breathing difficulty. No dizziness or lightheadedness or sense of palpitation. Review of Systems Review of Systems: Per HPI Physical Exam Physical Exam: The patient is alert and oriented. Mood and affect appeared normal. He answered all questions appropriately. HEENT: Pupils are equal and reactive to light and accommodation. Extraocular movements are intact. The sclerae are anicteric. Neuro: Cranial nerves intact Lungs: Clear to auscultation bilaterally. He has good air movement without use of accessory muscles. No rales wheezes or rhonchi. Cardiac: Heart demonstrates a regular rate and rhythm. Normal S1 and S2. No murmurs on examination. Pulses: The patient has palpable radial pulses bilaterally that are equal in intensity Extremities: There was no evidence of hypoperfusion. There is no cyanosis or clubbing. There is no edema. Skin: I did not appreciate any rashes on examination today. ENMT: Mallampati Class: III Respiratory: normal respiratory effort Cardiovascular: Rate/Rhythm: regular rate and regular rhythm Results & Data Vital Signs (Past 12 Hours) Vital Signs Temp Pulse Pulse Resp BP Pulse Ox O2 Del Method 01/05/25 10:55 50 L 12 116/76 96 Room Air 01/05/25 09:19 36.4 C 70 17 138/92 96 Room Air 01/05/25 09:00 59 L 01/05/25 07:39 36.8 C 61 19 136/84 96 Room Air 01/05/25 03:18 36.8 C 68 18 128/79 95 Room Air Laboratory Results Abnormal Lab Results 01/04/25 01/04/25 01/04/25 11:12 14:53 19:42 WBC 8.53 RBC 4.85 Hgb 15.6 Hct 46.1 MCV 95.1 MCH 32.2 MCHC 33.8 RDW Std Deviation 45.5 RDW Coeff of Radu 12.9 Plt Count 203 MPV 8.4 L Immature Gran % (Auto) 0.5 Neut % (Auto) 72.3 Lymph % (Auto) 19.0 Baxter % (Auto) 6.6 Eos % (Auto) 0.9 Baso % (Auto) 0.7 Neut # (Auto) 6.17 Lymph # (Auto) 1.62 Baxter # (Auto) 0.56 Eos # (Auto) 0.08 Baso # (Auto) 0.06 Immature Gran # (Auto) 0.04 PT 10.3 INR 0.9 APTT 23 PTT Ratio 0.9 Activ Coag Time Kaolin Heparin Anti-Xa, Unfract Sodium 134 L Potassium 4.6 Chloride 101 Carbon Dioxide 28 Anion Gap 5 BUN 20 Creatinine 1.37 Est Cr Clr Drug Dosing 54.8 eGFR 58.69 BUN/Creatinine Ratio 14.6 Glucose 142 H Calcium 9.4 Magnesium Total Bilirubin 0.5 AST 16 ALT 14 Alkaline Phosphatase 70 Troponin I High Sens 14.9 248.3 H* D 2230.2 H* D Total Protein 6.8 Albumin 4.4 Globulin 2.4 L Albumin/Globulin Ratio 1.8 Triglycerides Cholesterol LDL Cholesterol, Calc VLDL Cholesterol, Calc HDL Cholesterol Cholesterol/HDL Ratio Vitamin B12 01/04/25 01/05/25 01/05/25 22:51 01:57 06:17 WBC 7.11 RBC 4.83 Hgb 15.5 Hct 44.7 MCV 92.5 MCH 32.1 MCHC 34.7 RDW Std Deviation 43.9 RDW Coeff of Radu 12.9 Plt Count 160 MPV 8.3 L Immature Gran % (Auto) Neut % (Auto) Lymph % (Auto) Baxter % (Auto) Eos % (Auto) Baso % (Auto) Neut # (Auto) Lymph # (Auto) Baxter # (Auto) Eos # (Auto) Baso # (Auto) Immature Gran # (Auto) PT INR APTT PTT Ratio Activ Coag Time Kaolin Heparin Anti-Xa, Unfract 0.32 0.24 L Sodium 136 Potassium 4.5 Chloride 104 Carbon Dioxide 26 Anion Gap 6 BUN 14 Creatinine 1.21 Est Cr Clr Drug Dosing 61.7 eGFR 68.12 BUN/Creatinine Ratio 11.6 Glucose 113 H Calcium 8.7 Magnesium Total Bilirubin AST ALT Alkaline Phosphatase Troponin I High Sens 6564.0 H* D Total Protein Albumin Globulin Albumin/Globulin Ratio Triglycerides 57 Cholesterol 212 H LDL Cholesterol, Calc 137 VLDL Cholesterol, Calc 11 HDL Cholesterol 64 Cholesterol/HDL Ratio 3.3 Vitamin B12 885 01/05/25 01/05/25 01/05/25 07:55 10:05 10:49 WBC RBC Hgb Hct MCV MCH MCHC RDW Std Deviation RDW Coeff of Radu Plt Count MPV Immature Gran % (Auto) Neut % (Auto) Lymph % (Auto) Baxter % (Auto) Eos % (Auto) Baso % (Auto) Neut # (Auto) Lymph # (Auto) Baxter # (Auto) Eos # (Auto) Baso # (Auto) Immature Gran # (Auto) PT INR APTT PTT Ratio Activ Coag Time Kaolin 153 H 204 H Heparin Anti-Xa, Unfract Sodium Potassium Chloride Carbon Dioxide Anion Gap BUN Creatinine Est Cr Clr Drug Dosing eGFR BUN/Creatinine Ratio Glucose Calcium Magnesium 2.0 Total Bilirubin AST ALT Alkaline Phosphatase Troponin I High Sens 5899.0 H* Total Protein Albumin Globulin Albumin/Globulin Ratio Triglycerides Cholesterol LDL Cholesterol, Calc VLDL Cholesterol, Calc HDL Cholesterol Cholesterol/HDL Ratio Vitamin B12 Diagnostic Findings Chest CTA performed today did not reveal any aortic dissection no other acute findings. Chest x-ray obtained today did not reveal any acute cardiopulmonary findings. Cardiac catheterization [facility] 01/20/2017: 40% mid LAD lesion. Right dominant coronary system. Ejection fraction 55%. Apical regional wall motion abnormalities insistent with stress-induced cardiomyopathy. PG Care Time/CCT Total # of Minutes Spent Total Time Spent with Patient: Total time spent is greater than 50% in coordination of care (as documented) at patient's floor/unit and/or counseling patient: Coding Level of Care Code 14766 SUB INP/OBS CARE 2/35MIN Diagnoses Chest pain R07.9 Elevated troponin R79.89
--- NOTE | 2025-01-05 11:40 | Electrocardiogram Report ---
Test Reason : Blood Pressure : */* mmHG Vent. Rate : 62 BPM Atrial Rate : 62 BPM P-R Int : 164 ms QRS Dur : 80 ms QT Int : 410 ms P-R-T Axes : 80 79 70 degrees QTcB Int : 416 ms Sinus rhythm with Premature supraventricular complexes Otherwise normal ECG When compared with ECG of 04-Jan-2025 11:11, Premature supraventricular complexes are now Present Confirmed by Benji Conner ([id number]) on 01/05/2025 11:39:58 AM Referred By: REFERRED SELF Confirmed By: Benji Conner
--- NOTE | 2025-01-05 11:41 | Electrocardiogram Report ---
Test Reason : Blood Pressure : */* mmHG Vent. Rate : 60 BPM Atrial Rate : 60 BPM P-R Int : 160 ms QRS Dur : 80 ms QT Int : 422 ms P-R-T Axes : 74 67 56 degrees QTcB Int : 422 ms Normal sinus rhythm Normal ECG When compared with ECG of 04-Jan-2025 18:53, (unconfirmed) No significant change was found Confirmed by Benji Conner ([id number]) on 01/05/2025 11:40:53 AM Referred By: REFERRED SELF Confirmed By: Benji Conner
[2025-01-05 13:37] LABS: Estimated Average Glucose 111 mg/dl; Hemoglobin A1C 5.5 % (4.5-5.6)
--- NOTE | 2025-01-05 14:09 | Post Anesthesia Assessment ---
Date of Service January 05, 2025 Post Sedation Assessment Vital Signs Temp Pulse Pulse Resp BP BP Pulse Ox 01/05/25 13:25 53 L 12 133/89 96 01/05/25 13:10 50 L 12 141/89 H 96 01/05/25 12:55 52 L 12 132/95 96 01/05/25 12:40 56 L 12 132/83 96 01/05/25 12:25 52 L 12 123/83 96 01/05/25 12:10 52 L 12 120/83 95 01/05/25 11:55 50 L 12 119/80 94 01/05/25 11:40 47 L 12 110/81 95 01/05/25 11:25 49 L 12 110/76 96 01/05/25 11:10 52 L 12 116/78 95 01/05/25 10:55 50 L 12 116/76 96 01/05/25 09:19 36.4 C 70 17 138/92 96 01/05/25 09:00 59 L 01/05/25 07:39 36.8 C 61 19 136/84 96 01/05/25 03:18 36.8 C 68 18 128/79 95 01/04/25 22:21 36.8 C 53 L 18 97 01/04/25 22:00 01/04/25 21:24 63 16 148/93 H 97 01/04/25 19:49 64 16 145/93 H 97 01/04/25 19:02 55 L 01/04/25 18:42 58 L 13 01/04/25 18:12 52 L 14 01/04/25 17:53 64 16 161/97 H 97 01/04/25 16:59 144/99 H 01/04/25 16:51 55 L 14 01/04/25 16:12 58 L 15 01/04/25 16:00 84 15 01/04/25 15:51 66 17 01/04/25 15:25 60 17 152/92 H 96 O2 Del Method O2 Del Method O2 Flow Rate O2 Flow Rate 01/05/25 13:25 Room Air 01/05/25 13:10 Room Air 01/05/25 12:55 Room Air 01/05/25 12:40 Room Air 01/05/25 12:25 Room Air 01/05/25 12:10 Room Air 01/05/25 11:55 Room Air 01/05/25 11:40 Room Air 01/05/25 11:25 Room Air 01/05/25 11:10 Room Air 01/05/25 10:55 Room Air 01/05/25 09:19 Room Air 01/05/25 09:00 01/05/25 07:39 Room Air 01/05/25 03:18 Room Air 01/04/25 22:21 Nasal Cannula 2 01/04/25 22:00 Nasal Cannula 2 01/04/25 21:24 Room Air 01/04/25 19:49 Room Air 01/04/25 19:02 01/04/25 18:42 01/04/25 18:12 01/04/25 17:53 Room Air 01/04/25 16:59 01/04/25 16:51 01/04/25 16:12 01/04/25 16:00 01/04/25 15:51 01/04/25 15:25 Room Air Recovery Score Activity: Moves 4 extremities Respiration: Deep Breath/Cough Circulation: +/-20% PreAnes Value Consciousness: Fully Awake Oxygen Saturation: > 92% On Room Air Post Anesthesia Score: 10 Discharge Sedation Level of Care: Fast Track Phase II Post Sedation Plan On clinical assessment, the patient appears to have tolerated the sedation without complications. Patient is recovering as anticipated. Patient will continue to be monitored by nursing and may be discharged when sedation discharge criteria are met per below protocol. Upon Completions of procedure up to 15 minutes continue every 5 minute vital signs and the P.A.R. score; then discharge to a Phase I or Fast Track to Phase II per the following guidelines: * Discharge Patient to appropriate Phase II area if PAR is 8 or greater or return to pre- procedure baseline. The post - procedure orders will be as directed. * If PAR score is less than 8 or not return to pre-procedure baseline then patient will follow Phase I monitoring till PAR is reached for Phase II. The Phase I may be done in procedure room or may call to secure a Phase I area. * If naloxone or flumazenil are used for reversal, hold in Phase I for continued monitoring from when last reversal dose was given for a minimum of 60 minutes or longer pending the nurse and/or physician discretion of patient condition before discharge to Phase II. Please call the Sedation Physician to re-evaluate and complete post-note for discharge to Phase II area. Do NOT discharge from procedure sedation or Phase 1 until post- sedation evaluation note is complete by procedure /sedation MD Sedation Discharge Instructions to be given to the patient at discharge to home. [facility] [place] Procedure Codes (Charges) Indication for Procedure Indication for procedure: borderline CAD Sedation/Anesthesia Procedure 1: Sedation/Anesthesia: 75824 Mod Sedation by the same physician;Init15 Min Child Age 5 & Up (initial 15 min, start 1347) Total Sedation Time (minutes): 18 Procedure 2: Sedation/Anesthesia: 58381 Mod Sedation by the same physician; Ea [id number] Minutes (additional 3 min, end 1405)
--- NOTE | 2025-01-05 14:57 | Cardiac Catheterization ---
[facility] Data: Irrigation System Operator Cardiac Status Clinical evaluation leading to the procedure CAD Presenation: Non STEMI Anginal Classification: CCS IV Heart Failure: No Cardiogenic Shock within 24 Hours: No Cardiac Arrest within 24 Hours: No Imaging Studies Past 6 Months: Yes Stress Testing w/SPECT MPI: Yes - Unavailable Coronary Anatomy Left Main (% Stenosis): Normal (See diagnostic case report for coronary anatomy findings) Diagnostic Physicians Name: Fernando Ellington MD, PhD Closure Device Percutaneous Entry Location: Radial Closure Device: Radial Band Recommendations: Medical Therapy and/or Counseling Intraprocedure Events Significant Disection: No Perforation: No Cardiac Cath Procedure Full Procedure Date January 05, 2025 Pre-Procedure Diagnosis Pre-Procedure Diagnosis: Non STEMI AUC Score AUC Score: 07 Post-Procedure Diagnosis Post-Procedure Diagnosis: Moderate CAD Procedure(s) Performed Procedure(s) Performed: Fractional Flow [place] (IFR) Endocrinology Nurse Fernando Ellington MD, PhD Estimated Blood Loss Estimated Blood Loss: 5 cc Medication(s) Medication(s): Fentanyl, Heparin, Lidocaine 1%, Nicardipine, Nitroglycerin and Versed Summary of Findings Brief description: Patient was already shaved, prepped, and sedated by Dr. Conner for the diagnostic portion of the case. I was asked to perform Doppler wave wire analysis of the LAD lesions. Therefore, a 6 [place] EBU 3.0 guide catheter was used to engage the left main coronary. Patient was provided IV heparin (ACT checked intermittently and additional heparin provided as needed to maintain therapeutic anticoagulation). Omni Doppler wave wire was then introduced and positioned with its transducer just distal to the guide catheter tip. The system was flushed with normal saline. The pressures were then normalized. I attempted many times to pass the lesion with a wire so that we could perform IFR analysis. Eventually, I was successful and we then tried to perform IFR analysis of the proximal lesion. However, the wire was malfunctioning and needed to be removed. While we are waiting for a second wire there was an ST elevation VA in the emergency department. Decision was made at that point to interrupt this procedure and attend to the patient in the emergency department. Therefore, the guidewire and guide catheter were removed. The radial artery sheath was sterilely prepared and the patient was removed from the table. He then was transported to the holding area to await completion of the study. Start time was 10:17:22 with end time 10:47:23. After completion of the emergency case patient was returned to the Irrigation System Operator. He was prepped in a sterile fashion. The soft tissues of the right wrist were anesthetized using 2 mL of 1% Xylocaine. The previous radial artery glide sheath was then exchanged over a short 0.035 J-tip wire for a regular 6 [place] arterial sheath. Patient was provided sedation with fentanyl and Versed. A 6 [place] JL 3.5 guide catheter was advanced over the J-wire and used to engage the left main coronary. IV heparin was given. We took a single coronary angiogram to utilize as a roadmap. An Omni Doppler wave wire was then advanced through the guide catheter and again passed such that the transducer was just distal to the guide catheter tip. The system was flushed with normal saline and then the pressures were equalized. This time, we were more easily able to pass the Omni Doppler wave wire beyond the more proximal lesion and parked it so that transducer was just distal to the lesion. The IFR was then sampled 3 times. The guidewire was then advanced beyond the early distal LAD lesion and the IFR was again sampled. The guidewire was then removed and final angiographic evaluation was performed to ensure no complication of guidewire passage. The guide catheter was then removed from the patient. The radial artery sheath was removed. Hemostasis was obtained using the TR band. Patient was hemodynamically stable and asymptomatic. He was returned to the recovery area. This ended the case. IFR analysis of proximal LAD-0.94, 0.94, 0.94. Therefore this is not hemodynamically significant. IFR analysis of the early distal LAD-0.93, therefore this is not hemodynamically significant LUCAS-3 flow post IFR analysis No evidence of dissection or perforation post IFR analysis Summary: 1. Angiographically borderline stenosis in the proximal and early distal LAD. Evaluation by Doppler wave wire analysis demonstrates that neither of these lesions are hemodynamically significant. 2. Guideline directed medical therapy for secondary prevention of coronary artery disease per primary district ranger. 3. Note: This case was split into 2 parts because of an emergency occurring in the emergency department requiring we placed the patient in holding to return later to complete case. Hemodynamics Rest Ao:: Case first half-104/67 mmHg Case second half-116/68 mmHg Final Ao: Case first half 88/55 mmHg Case second 1:30 08/64 mmHg LV: Not performed Recommendations Recommendations: Medical Therapy and/or Counseling Radiation Exposure (mGy) Case 1/2- 883 mGy, fluoro 13.9 min. Case 2/2 164 mGy, fluoro 3.6 min Contrast (mls) Case 1/2-100 mL, case 2/2-50 mL Anesthesia Case 1/2 see Dx report, Case 2/2 2 mg Versed, 50 mcg fentanyl ([id number]) Procedural Complication(s) None Disposition Irrigation System Operator Holding/Recovery I attest to the content of the Intraoperative Record and any orders documented therein. Any exceptions are noted below. [facility] Card Cath Procedure Codes Cardiac Catheterization Procedure 1: Cardiovascular Cath Procedures: 98225 (Doppler) Pressure Wire (LAD) Moderate Sedation Procedure 1: Sedation/Anesthesia: 57191 Mod Sedation by the same physician;Init15 Min Child Age 5 & Up (Initial 15 min, start time 1347 (case second half)) Procedure 2: Sedation/Anesthesia: 07276 Mod Sedation by the same physician; Ea [id number] Minutes (Additional 3 minutes, end 1405 (case second half)) PG Care Time/CCT Total # of Minutes Spent Total Time Spent with Patient: Total time spent is greater than 50% in coordination of care (as documented) at patient's floor/unit and/or counseling patient:
[2025-01-05 15:06] VITALS: TEMP 98.2
[2025-01-05 16:10] LABS: ANTI-Xa, UFH(UnfractionatedHep 1.03 IU/ml (0.3-0.7)
[2025-01-05 17:08] VITALS: O2SAT 94
--- NOTE | 2025-01-05 17:20 | Cardiac Catheterization ---
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 Cardiac Status Clinical evaluation leading to the procedure CAD Presenation: Non STEMI Diagnostic Physicians Name: Benji Conner MD Closure Device Recommendations: Medical Therapy and/or Counseling Cardiac Cath Procedure Full Procedure Date January 05, 2025 Pre-Procedure Diagnosis Pre-Procedure Diagnosis: Non STEMI AUC Score AUC Score: 07 Post-Procedure Diagnosis Post-Procedure Diagnosis: Moderate CAD Procedure(s) Performed Procedure(s) Performed: Coronary Angiography and Left Heart Cath Composing Machine Operator/Tender Benji Conner MD Drapery Worker(s) none Estimated Blood Loss Estimated Blood Loss: 7 cc Medication(s) Medication(s): Fentanyl, Heparin, Lidocaine 1%, Nicardipine, Nitroglycerin and Versed Summary of Findings Procedure performed: Left heart catheterization, selective coronary angiography Staff dynamometer mechanic: Benji Conner MD Indication: NSTEMI Procedure in detail: The patient was informed of the risks benefits and alternatives to the intended procedure, he understood such and wished to proceed. He was taken to the cardiac catheterization suite in a fasting state. Conscious sedation was administered per protocol and the patient was monitored electrocardiographically throughout today's procedure. The right wrist area was prepped and draped in usual sterile fashion. This area was anesthetized using subcutaneous administration of a lidocaine solution. The right radial artery was then accessed using Seldinger technique, and a arterial sheath was placed at this site over a guidewire. The sheath was used to facilitate passage of the cardiac catheter for coronary angiography and left heart catheterization. Coronary angiogram was then obtained in multiple orthogonal views prior to removal of the catheter. At the conclusion of the procedure the sheath was removed and hemostasis was achieved at the access site using manual pressure. The patient tolerated procedure well, there were no immediate complications. Equipment used: 5 [place] 4 Findings: Coronary angiography Left Main: Left main coronary artery was normal in size and caliber and bifurcated normally into the left anterior descending left circumflex artery. No disease in this vessel. Left anterior descending: left anterior descending was a medium size vessel. There was a complex stenosis in its proximal portion. This was nearly a trifurcation involving the first diagonal and a large septal payroll services analyst branch. There was approximately 50% stenosis of the ostial diagonal and 60 to 70% stenosis of the LAD just distal to the diagonal branch. There was a medium size D2 without significant disease. Left circumflex: Left circumflex was a codominant vessel. It produced 2 small OM1's and a large third OM branch. There was also a OM 4 which was medium sized. There was some luminal irregularities but no discrete stenosis in this v essel. Right coronary artery: The right coronary was a codominant vessel. There is a 30% stenosis in its midportion. Large acute marginal branch. Small posterolateral branch. Impression: Codominant coronary system No evidence of aortic stenosis Normal left ventricular filling pressures Nonobstructive disease involving the right coronary artery Complex lesion in the proximal LAD of unclear severity. Plan intravascular evaluation. Hemodynamics Rest Ao:: 88/61 mmHg Final Ao: 89/62 mmHg LV: 104/4 mmHg Left ventricular end-diastolic pressure 14 mmHg Recommendations Recommendations: Medical Therapy and/or Counseling Radiation Exposure (mGy) 323 Contrast (mls) 40 Procedural Complication(s) None Disposition Filter Press Supervisor Holding/Recovery I attest to the content of the Intraoperative Record and any orders documented therein. Any exceptions are noted below. [facility] Card Cath Procedure Codes Cardiac Catheterization Procedure 1: Cardiovascular Cath Procedures: 31273 Coronaries and LHC (+/-LV) Moderate Sedation Procedure 1: Sedation/Anesthesia: 25786 Mod Sedation by the same physician;Init15 Min Child Age 5 & Up Procedure 2: Sedation/Anesthesia: 60965 Mod Sedation by the same physician; Ea [id number] Minutes PG Care Time/CCT Total # of Minutes Spent Total Time Spent with Patient: Total time spent is greater than 50% in coordination of care (as documented) at patient's floor/unit and/or counseling patient:
[2025-01-05 17:38] VITALS: PULSE 59; RESP 20
--- NOTE | 2025-01-05 17:45 | Discharge Summary ---
Discharge Summary Date of Service January 05, 2025 Principal Dx & Hospital Course #1 = Principal Diagnosis (1) Non-ST elevation (NSTEMI) myocardial infarction: Bambi Smith is a 59 year old male admitted to [facility] from January 04 to 2024 due to chest pain. He was chest pain free on admission and since then. He was diagnosed with an NSTEMI with troponin peaked at 6564 pg/mL. No changes on EKG. No wall motion abnormalities or thrombus on echocardiogram. He underwent cardiac catheterization and was determined to have angiographically borderline stenosis of the proximal and distal left anterior descending artery. Neither of these lesions were determined to be hemodynamically significant therefore no stent was placed. Guideline directed medical therapy for secondary prevention of coronary artery disease was recommended. Therefore he was started on aspirin, clopidogrel, metoprolol, atorvastatin. Recommend continuing clopidogrel for 3 months but can then stop. He should follow-up with cardiology either at the [facility] or [facility] physician group for ongoing management. Notes For Next Care Provider Follow-up with cardiology for ongoing management of his coronary artery disease Medication Changes From Visit Unclear what medications he was taking from the [facility]. Reports not taking any of his usual medications in the last month therefore all medications were prescribed on discharge. Aspirin, clopidogrel, metoprolol, atorvastatin, nitroglycerin prescribed due to NSTEMI. Clopidogrel plan to be continued for 3 months then stopped. Pantoprazole prescribed as he reported taking something for GERD but could not remember what this was. Thiamine started due to daily alcohol use Admission HPI Per Admitting Provider Ho is a 59-year-old male with a past medical history of non-STEMI, splenic infarction, dyslipidemia, hypertension who presents with chest pain. This occured after having an argument at a car dealership. He had chest pain that radiated to the jaw, down both arms and to the chest. Denies shortness of breath, but did have associated diaphoresis and lightheadedness. He had a recent stress test in [place] that recommended he have a stent placed but he declined this as he has been feeling well. Does not take any medications at home, reports that he is post be taking metoprolol and a statin but has not taken them in at least a month because "life has gotten busy" patient states the fentanyl did help his chest pain, does have a heaviness sensation in his chest. He denies history of diabetes but reports he is prediabetic, not on any medication. He does not smoke cigarettes but smokes marijuana "as often as possible" and drinks 2-3 beers with dinner daily ER course: Aspirin 324 mg p.o. Fentanyl 50 mcg IV Discharge Exam Constitutional WD/WN, vitals as above Respiratory normal respiratory effort, lungs clear to auscultation Cardiovascular RRR, no murmur, no edema Gastrointestinal (Abdomen) normal bowel sounds, soft, nontender, no hepatosplenomegaly Skin no rashes, warm and dry Discharge Plan Discharge Items Patient Disposition: Home - Self-Care Reason For Visit: CP, ELEVATED TROP Discharge Diagnosis: Heart attack Activity: As commented below Activity Comment: No vigorous activity involving the right hand or wrist for 7 days. Lifting Comment: No lifting greater than 5 pounds with the right hand for 1 week. Non-emergency contact: Dietary Server Call non-emergency contact if: you have any medication questions and your symptoms worsen Follow-up/Referrals: Benji Conner MD [Physician] - 02/08/25 11:00 am (Follow up NSTEMI) [facility] [Primary Care Provider] - Diet: Heart Healthy Addtl Attending Provider Instructions: You were admitted to [facility] from January 04 to 2024 due to chest pain. You were diagnosed with a non-ST elevation myocardial infarction (heart attack). You underwent cardiac catheterization and determined to have angiographically borderline stenosis of the proximal and distal left anterior descending artery. Neither of these lesions were determined to be hemodynamically significant therefore no stent was placed. Guideline directed medical therapy for secondary prevention of coronary artery disease was recommended. Therefore you were started on aspirin, clopidogrel, metoprolol, atorvastatin. Recommend continuing clopidogrel for 3 months but can discontinue after then. Please follow-up with cardiology either at the [facility] or [facility] physician group for ongoing management. You are prescribed nitroglycerin in case your chest pain returns. If you take this with resolution of your chest pain recommend contacting your coffee bar attendant for ongoing management. If no resolution of your chest pain you can take up to 3 doses spaced 5 minutes apart but recommend calling for an ambulance during this time. Thiamine was started due to daily alcohol use, recommend continuing this and following up with your primary care physician for ongoing management. Pantoprazole was started as you reported taking something for heartburn with your hiatal hernia. Please follow-up with your primary care physician for ongoing management of this. Pending Studies at Discharge: No Stand-Alone Forms: My [facility], Smoking Cessation Medications and DC Order Prescriptions: New atorvastatin 40 mg Tablet 40 mg PO QPM Qty: 30 0RF thiamine HCl (vitamin B1) 100 mg Tablet 100 mg PO QAM Qty: 30 0RF aspirin 81 mg Tablet,Delayed Release (Dr/Ec) 81 mg PO QAM Qty: 30 0RF pantoprazole 40 mg Tablet,Delayed Release (Dr/Ec) 40 mg PO QAM Qty: 30 0RF metoprolol tartrate 25 mg Tablet 12.5 mg PO BID Qty: 60 0RF clopidogrel 75 mg tablet 75 mg PO DAILY Qty: 30 0RF nitroglycerin 0.4 mg tablet, sublingual 0.4 mg sublingual Q5M PRN (Reason: Chest Pain) Qty: 3 0RF Rx Instructions: Use up to three doses, Call cardiology if used. Call for ambulance if chest pain not relieved after one dose. Discharge Orders: Discharge Order (Routine); Ordered 01/05/25 Ordered By: Jake Ballesteros/Other Patient Handouts: Cardiac Catheterization Dc, Heart Attack Dc Admission Data Admit Date/Time: 01/04/25 17:00 Attending Provider: Jake Diego Admit Provider: Waylon Hanley Primary Care Provider: [facility] Other Providers: Benji Conner; Fernando Ellington Other Interventions: Discharge Summary Assessment (RN) Last Done: 01/05/25 17:52 Hospital Stay Data Consultations 01/04/25 15:41 ED Decision to Admit Stat 01/04/25 16:04 Consult Cardiology Routine Procedures Performed Operation Date: 01/05/25 11:00 Actual Procedures p Cineradiography w/Routine Exam - Fernando Ellington MD, PhD Diagnostic Imagining Performed 01/04/25 12:12 CTA chest dissec wo/w con [CT angio chest dissec wo/w con] Stat 01/05/25 09:30 CL Cath Imgs for PACS use only Routine 01/05/25 13:27 CL Cath Imgs for PACS use only Routine Pending Results Patient Have Any Pending Studies at Discharge: No Discharge Instructions Given to Patient (Per Discharging Provider) You were admitted to [facility] from January 04 to 2024 due to chest pain. You were diagnosed with a non-ST elevation myocardial infarction (heart attack). You underwent cardiac catheterization and determined to have angiographically borderline stenosis of the proximal and distal left anterior descending artery. Neither of these lesions were determined to be hemodynamically significant therefore no stent was placed. Guideline directed medical therapy for secondary prevention of coronary artery disease was recommended. Therefore you were started on aspirin, clopidogrel, metoprolol, atorvastatin. Recommend continuing clopidogrel for 3 months but can discontinue after then. Please follow-up with cardiology either at the [facility] or [facility] physician group for ongoing management. You are prescribed nitroglycerin in case your chest pain returns. If you take this with resolution of your chest pain recommend contacting your coffee bar attendant for ongoing management. If no resolution of your chest pain you can take up to 3 doses spaced 5 minutes apart but recommend calling for an ambulance during this time. Thiamine was started due to daily alcohol use, recommend continuing this and following up with your primary care physician for ongoing management. Pantoprazole was started as you reported taking something for heartburn with your hiatal hernia. Please follow-up with your primary care physician for ongoing management of this. Total Time Total Time Spent Total Time Spent (In Minutes): 45 Coding Level of Care Code 91248 INP/OBS DISCH >30 MIN Diagnoses Non-ST elevation (NSTEMI) myocardial infarction I21.4
[2025-01-05 17:54] VITALS: BP 125/83
[2025-01-05] MEDS: ATORVASTATIN 40 MG TAB PO SCH (18:16)
[2025-01-05] MEDS ORDERED: Nursing to Pharmacy Communication SCH ×2 (18:45→19:00)
[2025-01-05] MEDS ORDERED: ATORVASTATIN 40 MG TAB PO SCH (19:00)
[2025-01-05] MEDS ORDERED: THIAMINE HCL 100 MG TAB PO SCH (19:00)
[2025-01-05] MEDS ORDERED: ASPIRIN 81 MG ECTAB PO SCH (19:00)
[2025-01-05] MEDS ORDERED: PANTOprazole 40 MG TAB PO SCH (19:00)
[2025-01-05] MEDS ORDERED: METOPROLOL TARTRATE 25 MG TAB PO SCH (21:01)
--- NOTE | 2025-01-06 17:42 | Electrocardiogram Report ---
Test Reason : Blood Pressure : */* mmHG Vent. Rate : 61 BPM Atrial Rate : 61 BPM P-R Int : 178 ms QRS Dur : 92 ms QT Int : 424 ms P-R-T Axes : 81 81 69 degrees QTcB Int : 426 ms Normal sinus rhythm Normal ECG When compared with ECG of 04-Jan-2025 15:48, Premature supraventricular complexes are no longer Present Confirmed by Benji Conner ([id number]) on 01/06/2025 5:42:02 PM Referred By: REFERRED SELF Confirmed By: Benji Conner
== END 2025-01-05 19:34 | disposition home or self-care (01) | DRG 282 ==
LOC: ED 10:42 → EDINP 17:00 → SUATTDRO 17:00 → 2S 19:28
PROC: CLB.CCO (2025-01-05 09:30)
DX: I21.4 Non-ST elevation (NSTEMI) myocardial infarction; R73.03 Prediabetes; Z87.891 Personal history of nicotine dependence; E78.5 Hyperlipidemia, unspecified; I10 Essential (primary) hypertension; F10.10 Alcohol abuse, uncomplicated; K21.9 Gastro-esophageal reflux disease without esophagitis; Z91.148 Patient's other noncompliance with medication regimen for other reason; T50.906A Underdosing of unspecified drugs, medicaments and biological substances, initial encounter; I25.2 Old myocardial infarction